=== PATIENT | male | born 1940 | race African-American/Black ===

== ENCOUNTER 2020-08-12 06:00 | Day surgery (SDC) | payer MEDICARE, BC ==
[~2020-08-12] VITALS: Ht 175.3 cm; Wt 81.6 kg
[~2020-08-12 06:00] MED LIST: ASPI-1497 PO; ATEN100T PO; CYCL10TA7 PO; DOXA4TAB2 PO; FERR325T30 PO; LACTATED RINGERS 1,000 ML IV SCH; LOSA50TA41 PO; METF-414 PO
[2020-08-12] MEDS ORDERED: LIDOCAINE HCL 1% 20ML VIAL (Pyxis) INJ ONE (06:59)
[2020-08-12] MEDS ORDERED: BUPIVACAINE HCL/PF 0.25% (2.5MG/ML) 10ML ONE (06:59)
[2020-08-12] MEDS ORDERED: BUPIVACAINE HCL/PF 0.5% (5MG/ML) 10ML ONE (07:01)
[2020-08-12] MEDS ORDERED: BACITRACIN 50,000 UNITS/VIAL ONE (07:01)
[2020-08-12] MEDS ORDERED: SODIUM CHLORIDE 0.9% INJ 10ML FLUSH ONE (07:01)
[2020-08-12] MEDS ORDERED: PROPOFOL 200MG/20ML VIAL IV ONE (07:32)
[2020-08-12] MEDS ORDERED: ASPI-986 PO (07:44)
[2020-08-12] MEDS ORDERED: ALPR-340 MT (07:53)
[2020-08-12] MEDS ORDERED: PARO-41 MT (07:53)
[2020-08-12] MEDS ORDERED: PANT40TA4 MT (07:53)
[2020-08-12] MEDS ORDERED: IRBE150T24 MT (07:53)
[2020-08-12] MEDS ORDERED: SELE180S13 TP (07:53)
[2020-08-12] MEDS ORDERED: FURO40TA5 MT (07:53)
[2020-08-12] MEDS ORDERED: ROSU20TA2 MT (07:53)
[2020-08-12] MEDS ORDERED: VANCOMYCIN HCL 1 GM/VIAL ONE (08:26)
[2020-08-12] MEDS ORDERED: LIDOCAINE HCL/PF 1% 10 MG/ML 5ML VIAL ONE (08:47)
[2020-08-12] MEDS ORDERED: PHENYLEPHRINE HCL 10 MG/ML 1ML (IV VIAL) IV ONE (08:47)
[2020-08-12] MEDS ORDERED: ONDANSETRON HCL 4MG/2ML INJ ONE (08:47)
== END 2020-08-12 10:45 | disposition home or self-care (01) ==
LOC: OR 06:00
PROVIDERS: ATTEND Podiatrist Foot & Ankle Surgery
DX: M86.8X7 Other osteomyelitis, ankle and foot (principal); S91.104A Unspecified open wound of right lesser toe(s) without damage to nail, initial encounter; I10 Essential (primary) hypertension; E78.00 Pure hypercholesterolemia, unspecified; I25.10 Atherosclerotic heart disease of native coronary artery without angina pectoris; E11.9 Type 2 diabetes mellitus without complications; Z79.84 Long term (current) use of oral hypoglycemic drugs; Z79.899 Other long term (current) drug therapy; Z98.890 Other specified postprocedural states; X58.XXXA Exposure to other specified factors, initial encounter; Y93.89 Activity, other specified; Y92.89 Other specified places as the place of occurrence of the external cause; Y99.8 Other external cause status
CPT/HCPCS: 28825; 82962; 87070; 87075; 87077; 87186; 87205; 88302; 88311; J2370; J2405; J2704; J3370; J3490